=== PATIENT | female | born 1955 | race Asian ===

== ENCOUNTER 2018-01-20 05:49 | Day surgery (SDC) | payer OTHER ==
[~2018-01-20] VITALS: Ht 165.1 cm; Wt 77.4 kg
[~2018-01-20 05:49] MED LIST: CALC1TAB2 PO; CHOL50004 PO; LEVO112T4 PO; OMEP40CA37 PO; SODIUM CHLORIDE 0.9% 1000ML 1,000 ML IV ONE
[2018-01-20 06:10] VITALS: BP 141/70
[2018-01-20] MEDS ORDERED: PROPOFOL 10 MG/ML 20ML VIAL IV ONE (07:10)
[2018-01-20 07:42] VITALS: BP 101/54
[2018-01-20 07:47] VITALS: BP 106/62
[2018-01-20 07:53] VITALS: BP 115/64
== END 2018-01-20 08:10 | disposition home or self-care (01) ==
LOC: ENDO 05:49 → DAH 05:49 → ENDO 08:10
PROVIDERS: ATTEND Internal Medicine Gastroenterology
DX: Z12.11 Encounter for screening for malignant neoplasm of colon (principal); K29.70 Gastritis, unspecified, without bleeding; Z80.0 Family history of malignant neoplasm of digestive organs; K62.1 Rectal polyp; K63.5 Polyp of colon; K64.0 First degree hemorrhoids; K57.30 Diverticulosis of large intestine without perforation or abscess without bleeding; J45.909 Unspecified asthma, uncomplicated; E03.9 Hypothyroidism, unspecified; K21.9 Gastro-esophageal reflux disease without esophagitis; Z90.710 Acquired absence of both cervix and uterus; Z88.8 Allergy status to other drugs, medicaments and biological substances; Z79.899 Other long term (current) drug therapy
CPT/HCPCS: 43239; 45380; 88305; A4606; J2704; J7030